=== PATIENT | female | born 1970 | race Caucasian/White ===

== ENCOUNTER 2016-06-12 22:00 | Emergency (ER) | payer OTHER ==
[~2016-06-12] VITALS: Ht 170.2 cm; Wt 81.6 kg
--- NOTE | 2016-06-12 22:08 | ED CARDIAC/CP/PALPITATIONS ---
History of Present Illness General Chief Complaint: Chest Pain Stated Complaint: CHEST PAIN Source: patient, family Exam Limitations: no limitations Vital Signs & Intake/Output Vital Signs & Intake/Output Vital Signs Date Time Temp Pulse Resp B/P Pulse O2 O2 Flow FiO2 Ox Delivery Rate 06/12 2241 99 Room Air 06/12 2218 97.8 89 18 154/82 100 Room Air ED Intake and Output 06/13 0000 06/12 1200 Intake Total 50 Output Total Balance 50 Intake, Oral 50 Patient 180 lb Weight Allergies Coded Allergies: Penicillins (Severe, ANAPHYLAXIS 06/12/16) Reconcile Medications Lorazepam (Ativan) 1 MG TABLET 1 TAB PO BID PRN PANIC EIGHT TABS...[id number] Triage Nurses Notes Reviewed? yes Onset: Gradual Duration: day(s):, waxing and waning Timing: recent history Quality/Severity: moderate Location: central Radiation: no radiation Activities at Onset: none Prior Chest Pain/Card Workup: no prior chest pain, no prior cardiac workup Modifying Factors: Improves With: rest. Associated Symptoms: "i AM HAVING A PANIC ATTACK." HPI: 45-year-old woman history of panic disorder, presents with 1 day history of palpitations and mild chest pressure. Her symptoms began yesterday in the morning. She states "I felt a fluttering in my chest is getting my kids off to school. I took a lorazepam and went to sleep. This helped me feel better. I kept on having palpitations. I'm having a panic attack. I feel panicky." She notes also that she recently did cocaine socially. She does not use cocaine daily. At present she has no chest pain. No wheezing dyspnea fever chills sputum. 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 She has had a benign stress test and Holter monitor within the past 5 years. Past History Travel History Traveled to [place] past 21 day No Medical History Any Pertinent Medical History? see below for history Surgical History Surgical History: none Family History Hx Contributory? No Review of Systems Review of Systems Constitutional: Reports: no symptoms. EENTM: Reports: no symptoms. Respiratory: Reports: no symptoms. Cardiovascular: Reports: no symptoms. GI: Reports: no symptoms. Genitourinary: Reports: no symptoms. Musculoskeletal: Reports: no symptoms. Skin: Reports: no symptoms. Neurological/Psychological: Reports: no symptoms. Hematologic/Endocrine: Reports: no symptoms. Immunologic/Allergic: Reports: no symptoms. All Other Systems: Reviewed and Negative Physical Exam Physical Exam General Appearance: well developed/nourished, no apparent distress Head: atraumatic, normal appearance Eyes: Bilateral: normal appearance. Ears, Nose, Throat: normal pharynx, normal ENT inspection, hearing grossly normal Neck: normal inspection, supple, full range of motion Respiratory: normal breath sounds, chest non-tender, no respiratory distress, quiet respiration, lungs clear Cardiovascular: regular rate/rhythm Gastrointestinal: normal bowel sounds, soft, non-tender, no organomegaly Back: normal inspection, normal range of motion Extremities: normal inspection, normal capillary refill, normal range of motion, no edema Neurologic/Psych: no motor/sensory deficits, awake, alert, oriented x 3 Skin: intact, normal color, warm/dry Core Measures ACS in differential dx? No Severe Sepsis Present: No Septic Shock Present: No Progress Differential Diagnosis: AMI, panic attack. Cocaine effect. Unstable angina versus other Plan of Care: Orders Procedure Date/time Status TROPONIN LEVEL 06/13 129 Complete EKG 06/13 129 Active URINE DRUG SCREEN FOR ER ONLY 06/12 2220 Active TROPONIN LEVEL 06/12 2201 Complete HUMAN BETA HCG SCREEN 06/12 2201 Complete D-DIMER 06/12 2201 Complete COMPREHENSIVE METABOLIC PANEL 06/12 2201 Complete CBC WITHOUT DIFFERENTIAL 06/12 2201 Complete EKG 06/12 2200 Active Laboratory Tests 06/13/16 0147: Troponin I < 0.01 06/12/16 2237: Anion Gap 10, Estimated GFR > 60, BUN/Creatinine Ratio 12.5, Glucose 92, Calcium 9.2, Total Bilirubin 0.6, AST 30, ALT 31, Alkaline Phosphatase 61, Troponin I < 0.01, Total Protein 7.1, Albumin 4.0, Globulin 3.1, Albumin/Globulin Ratio 1.3, Total Beta HCG NEGATIVE, D-Dimer < 200, CBC w Diff NO MAN DIFF REQ, RBC 4.62, MCV 85.8, MCH 28.9, RDW 12.8, MPV 7.5, Gran % 70.4, Lymphocytes % 17.7 L, Monocytes % 7.6, Eosinophils % 3.4, Basophils % 0.9, Absolute Granulocytes 5.4, Absolute Lymphocytes 1.4, Absolute Monocytes 0.6, Absolute Eosinophils 0.3, Absolute Basophils 0.1, PUBS MCHC 33.6 Diagnostic Imaging: Viewed by Me: Radiology Read. Discussed w/RAD: Radiology Read. CXR Impression: no acute abnormality, no infiltrates, normal size heart, normal mediastinum Initial ED EKG: normal axis, normal intervals, normal p-waves, normal QRS complex, normal sinus rhythm, no acute changes from baseline Repeat EKG: unchanged Departure Departure Disposition: HOME OR SELF CARE Condition: Stable Clinical Impression Primary Impression: Palpitations Secondary Impressions: Chest pain Departure Forms: Customer Survey General Discharge Information Prescriptions: Current Visit Scripts Lorazepam (Ativan) 1 TAB PO BID PRN PANIC #8 TAB EIGHT TABS...[id number] Comments 06/13/16, 2:46.... trop neg x 2, ekg benign x2... pt feels better after ativan... safe for discharge... close follow up advised. Critical Care Note Critical Care Note Critical Care Time: non-applicable
[2016-06-12 22:44] LABS: ABSOLUTE BASOPHIL COUNT 0.1 /CUMM (0.0-0.2); ABSOLUTE EOSINOPHIL COUNT 0.3 /CUMM (0.0-0.7); ABSOLUTE GRANULOCYTE CT 5.4 /CUMM (1.4-6.5); ABSOLUTE LYMPH COUNT 1.4 /CUMM (1.2-3.4); ABSOLUTE MONOCYTE COUNT 0.6 /CUMM (0.10-0.60); BASOPHIL % 0.9 % (0.0-2.0); EOSINOPHIL % 3.4 % (0-5); GRANULOCYTE % 70.4 % (42.2-75.2); HEMATOCRIT 39.6 % (37-47); MEAN CORPUSCULAR HGB 28.9 PG (27.0-31.0); MEAN CORPUSCULAR HGB CONC 33.6 G/DL (33.0-37.0); MEAN CORPUSCULAR VOLUME 85.8 FL (81.0-99.0); MEAN PLATELET VOLUME 7.5 FL (7.4-10.4); PLATELET COUNT 275 /CUMM (130-400); RBC DISTRIBUTION WIDTH 12.8 % (11.5-14.5); RED BLOOD CELL CT 4.62 /CUMM (4.20-5.40); WHITE BLOOD CELL COUNT 7.7 /CUMM (4.8-10.8)
--- NOTE | 2016-06-13 00:14 | RADIOLOGY REPORT ---
EXAMINATION: XR PORTABLE CHEST CLINICAL INFORMATION: Chest pain. COMPARISON: None available. TECHNIQUE: Portable AP view of the chest was obtained. FINDINGS: Symmetric lung inflation. No focal consolidation, pleural effusion, or pneumothorax. Cardiac silhouette size is normal. There are no acute osseous findings. IMPRESSION: No acute pulmonary process.
[2016-06-13] MEDS ORDERED: ATIVAN1 M1 PO (02:45)
[2016-06-13 02:49] VITALS: BP 109/55
== END 2016-06-13 03:04 ==
LOC: ERH 22:00
PROVIDERS: Pediatrics
DX: R00.2 Palpitations (principal); R07.89 Other chest pain
CPT/HCPCS: 80307; 93005; 93010